=== PATIENT | female | born 1975 | race Caucasian/White ===

== ENCOUNTER 2019-09-07 18:15 | Emergency (ER) | payer BC ==
[~2019-09-07] VITALS: Ht 160 cm; Wt 81.7 kg
[~2019-09-07 18:15] MED LIST: ADDERALL 5 MG TA5 M1 PO; BUPRENORPHINE HC8 MG; CLONAZEPAM 0.50.5 M1; EVEKEO10 MG PO; FLOMAX0.4 MG PO; HYDROCODONE-AP1 EAC6 PO; NEURONTIN 300300 M1 PO; NORCO 10-325 T1 EACH; ONDANSETRON HCL4 M2 PO; STRATTERA25 MG; TORADOL 10 MG T10 MG PO; ZANTAC 150MG T150 MG PO; ZOFRAN ODT4 MG PO
[2019-09-07] MEDS ORDERED: AMOXICILLI400 MG/5 M PO (18:30)
[2019-09-07] MEDS ORDERED: ESCITALOPRA5 MG/5 ML PO (18:30)
[2019-09-07] MEDS ORDERED: BACLOFEN 10MG T10 MG PO (18:30)
[2019-09-07 19:57] VITALS: BP 132/83
== END 2019-09-07 19:57 | disposition home or self-care (01) ==
LOC: M.ERS 18:15
DX: S16.1XXA Strain of muscle, fascia and tendon at neck level, initial encounter (principal); M79.7 Fibromyalgia; Z90.711 Acquired absence of uterus with remaining cervical stump; Z90.49 Acquired absence of other specified parts of digestive tract; Z87.442 Personal history of urinary calculi; Z88.6 Allergy status to analgesic agent; W01.0XXA Fall on same level from slipping, tripping and stumbling without subsequent striking against object, initial encounter; Y93.89 Activity, other specified; Y92.89 Other specified places as the place of occurrence of the external cause; Y99.8 Other external cause status

== ENCOUNTER 2021-07-06 16:04 | Emergency (ER) | payer BC ==
[~2021-07-06] VITALS: Ht 160 cm; Wt 77.1 kg
[~2021-07-06 16:04] MED LIST changes: +AMOXICILLI400 MG/5 M PO; +BACLOFEN 10MG T10 MG PO; +ESCITALOPRA5 MG/5 ML PO
[2021-07-06] MEDS ORDERED: XANAX 0.25 MG0.25 MG PO (16:24)
[2021-07-06] MEDS ORDERED: BUSPIRONE HCL10 MG PO (16:24)
[2021-07-06] MEDS ORDERED: LIPITOR10 MG PO (16:24)
[2021-07-06] MEDS ORDERED: AMOX TR-K CLV1 EAC4 PO (16:35)
[2021-07-06] MEDS ORDERED: ONDANSETRON HCL4 M2 PO (16:35)
[2021-07-06 16:40] VITALS: BP 125/80
== END 2021-07-06 16:41 | disposition home or self-care (01) ==
LOC: M.ERS 16:04
DX: K04.7 Periapical abscess without sinus (principal); M79.7 Fibromyalgia; F41.9 Anxiety disorder, unspecified; F32.9 Major depressive disorder, single episode, unspecified; F12.90 Cannabis use, unspecified, uncomplicated; Z90.49 Acquired absence of other specified parts of digestive tract; Z90.711 Acquired absence of uterus with remaining cervical stump; Z87.442 Personal history of urinary calculi; Z79.899 Other long term (current) drug therapy; Z88.8 Allergy status to other drugs, medicaments and biological substances